=== PATIENT | female | born 1995 | race American Indian/Alaskan Native ===

== ENCOUNTER 2021-05-16 14:18 | Emergency (ER) | payer BC ==
[2021-05-16] MEDS ORDERED: SODIUM CHLORIDE 0.9% 1000 ML 1,000 ML IV ONE ×2 (15:15)
[2021-05-16] MEDS ORDERED: fentaNYL 100 MCG/2 ML INJ IV ONE (15:15)
[2021-05-16] MEDS ORDERED: ONDANSETRON 4 MG/2 ML INJ IV ONE (15:15)
--- NOTE | 2021-05-16 15:25 | Emergency Department Report ---
HPI - General Chief Complaint: Nausea/Vomiting/Diarrhea Time Seen by Provider: 05/16/21 15:05 - HPI HPI: Room 25 The patient is a 25-year-old female present with a chief complaint of nausea and vomiting. The patient states she had a strep positive this yesterday which she ate without event. The patient states she decided to eat some more today and a pproximate 30 minutes later developed intractable nausea vomiting with diffuse abdominal pain. Patient denies dysuria or vaginal discharge. ED Past Medical Hx - Past Medical History Previous Medical History?: No Hx Asthma: Yes - Surgical History Additional Surgical History: Hernia repair - Family History Family history: no significant - Social History Smoking Status: Never Smoker Substance Use Type: None, Marijuana - Medications Home Medications: Home Medications Medication Instructions Recorded Confirmed Last Taken Type Ciprofloxacin HCl 500 mg PO BID #14 tablet 05/16/21 Unknown Rx Promethazine [Phenergan] 25 mg PO Q6HR PRN #20 tab 05/16/21 Unknown Rx Promethazine [Phenergan] 25 mg DE Q6HR PRN #5 supp.rect 05/16/21 Unknown Rx ED Review of Systems ROS: Stated complaint: VOMITING Other details as noted in HPI Constitutional: no symptoms reported Eyes: denies: eye pain ENT: denies: throat pain Respiratory: no symptoms reported Cardiovascular: denies: chest pain Endocrine: no symptoms reported Gastrointestinal: abdominal pain, nausea, vomiting. denies: diarrhea Genitourinary: denies: dysuria, discharge Musculoskeletal: denies: back pain Neurological: denies: headache Physical Exam - Physical Exam Vital Signs: Vital Signs 05/16/21 14:44 Temperature 98.2 F Pulse Rate 63 Respiratory 16 Rate Blood Pressure 90/52 O2 Sat by Pulse 98 Oximetry Vital Signs 05/16/21 05/16/21 05/16/21 14:44 15:04 15:30 Temperature 98.2 F Pulse Rate 63 70 74 Respiratory 16 16 17 Rate Blood Pressure 90/52 Blood Pressure [Left] O2 Sat by Pulse 98 99 100 Oximetry 05/16/21 05/16/21 05/16/21 16:37 17:00 17:36 Temperature Pulse Rate 77 81 Respiratory 24 16 Rate Blood Pressure Blood Pressure 122/78 [Left] O2 Sat by Pulse 93 100 99 Oximetry Physical Exam: GENERAL: The patient is well-developed well-nourished female lying on stretcher appearing to be in mild discomfort. [] HEENT: Normocephalic. Atraumatic. Extraocular motions are intact. Patient has moist mucous membranes. NECK: Supple. Trachea midline CHEST/LUNGS: Clear to auscultation. There is no respiratory distress noted. HEART/CARDIOVASCULAR: Regular. There is no tachycardia. There is no gallop rub or murmur. ABDOMEN: Abdomen is soft, tender in all quadrants except the right upper quadrant. There is no rebound or guarding. Patient has normal bowel sounds. There is no abdominal distention. SKIN: There is no rash. There is no edema. There is no diaphoresis. NEURO: The patient is awake, alert, and oriented. The patient is cooperative. The patient has no focal neurologic deficits. The patient has normal speech MUSCULOSKELETAL: There is no evidence of acute injury. ED Course Vital Signs 05/16/21 14:44 Temperature 98.2 F Pulse Rate 63 Respiratory 16 Rate Blood Pressure 90/52 O2 Sat by Pulse 98 Oximetry - Reevaluation(s) Reevaluation #1: 05/16/21 17:10 Patient states she feels improved. P.o. challenge given 05/16/21 17:42 Patient tolerated p.o. ED Medical Decision Making - Lab Data Result diagrams: 05/16/21 15:14 05/16/21 15:14 Laboratory Tests 05/16/21 05/16/21 05/16/21 15:14 15:14 15:14 WBC 13.4 H RBC 4.45 Hgb 11.5 Hct 34.2 MCV 77 L MCH 26 L MCHC 34 RDW 17.1 H Plt Count 286 Add Manual Diff Complete Total Counted 100 Seg Neuts % (Manual) 81.0 H Lymphocytes % (Manual) 11.0 L Monocytes % (Manual) 5.0 Eosinophils % (Manual) 2.0 Basophils % (Manual) 1.0 Nucleated RBC % Not Reportable Seg Neutrophils # Man 10.9 H Band Neutrophils # 0.0 Lymphocytes # (Manual) 1.5 Abs React Lymphs (Man) 0.0 Monocytes # (Manual) 0.7 Eosinophils # (Manual) 0.3 Basophils # (Manual) 0.1 Metamyelocytes # 0.0 Myelocytes # 0.0 Promyelocytes # 0.0 Blast Cells # 0.0 WBC Morphology Not Reportable Hypersegmented Neuts Not Reportable Hyposegmented Neuts Not Reportable Hypogranular Neuts Not Reportable Smudge Cells Not Reportable Toxic Granulation Not Reportable Toxic Vacuolation Not Reportable Dohle Bodies Not Reportable Pelger-Huet Anomaly Not Reportable Cheryl Rods Not Reportable Platelet Estimate Not Reportable Clumped Platelets Not Reportable Plt Clumps, EDTA Not Reportable Large Platelets Not Reportable Giant Platelets Not Reportable Platelet Satelliting Not Reportable Plt Morphology Comment Not Reportable RBC Morphology Not Reportable Dimorphic RBCs Not Reportable Polychromasia Not Reportable Hypochromasia 1+ Poikilocytosis Not Reportable Anisocytosis Few Microcytosis Not Reportable Macrocytosis Not Reportable Spherocytes Not Reportable Pappenheimer Bodies Not Reportable Sickle Cells Not Reportable Target Cells Not Reportable Tear Drop Cells Not Reportable Ovalocytes Not Reportable Helmet Cells Not Reportable Zuleta-Rouse Bodies Not Reportable Gilson Rings Not Reportable Laie Cells Not Reportable Bite Cells Not Reportable Crenated Cell Not Reportable Elliptocytes Not Reportable Acanthocytes (Spur) Not Reportable Rouleaux Not Reportable Hemoglobin C Crystals Not Reportable Schistocytes Not Reportable Malaria parasites Not Reportable Gilbert Bodies Not Reportable Hem Pathologist Commnt No Sodium 137 Potassium 3.6 Chloride 101.1 Carbon Dioxide 27 Anion Gap 13 BUN 10 Creatinine 0.5 L Estimated GFR > 60 BUN/Creatinine Ratio 20 Glucose 134 H Calcium 9.0 Total Bilirubin 0.20 AST 12 ALT 11 Alkaline Phosphatase 80 Total Protein 6.6 Albumin 3.9 Albumin/Globulin Ratio 1.4 Lipase HCG, Qual Negative Urine Color Urine Turbidity Urine pH Ur Specific [place] Urine Protein Urine Glucose (UA) Urine Ketones Urine Blood Urine Nitrite Urine Bilirubin Urine Urobilinogen Ur Leukocyte Esterase Urine WBC (Auto) Urine RBC (Auto) U Epithel Cells (Auto) Urine Bacteria (Auto) Urine Mucus Urine Yeast (Budding) 05/16/21 05/16/21 15:21 Unknown WBC RBC Hgb Hct MCV MCH MCHC RDW Plt Count Add Manual Diff Total Counted Seg Neuts % (Manual) Lymphocytes % (Manual) Monocytes % (Manual) Eosinophils % (Manual) Basophils % (Manual) Nucleated RBC % Seg Neutrophils # Man Band Neutrophils # Lymphocytes # (Manual) Abs React Lymphs (Man) Monocytes # (Manual) Eosinophils # (Manual) Basophils # (Manual) Metamyelocytes # Myelocytes # Promyelocytes # Blast Cells # WBC Morphology Hypersegmented Neuts Hyposegmented Neuts Hypogranular Neuts Smudge Cells Toxic Granulation Toxic Vacuolation Dohle Bodies Pelger-Huet Anomaly Cheryl Rods Platelet Estimate Clumped Platelets Plt Clumps, EDTA Large Platelets Giant Platelets Platelet Satelliting Plt Morphology Comment RBC Morphology Dimorphic RBCs Polychromasia Hypochromasia Poikilocytosis Anisocytosis Microcytosis Macrocytosis Spherocytes Pappenheimer Bodies Sickle Cells Target Cells Tear Drop Cells Ovalocytes Helmet Cells Zuleta-Rouse Bodies Gilson Rings Diomedes Cells Bite Cells Crenated Cell Elliptocytes Acanthocytes (Spur) Rouleaux Hemoglobin C Crystals Schistocytes Malaria parasites Gilbert Bodies Hem Pathologist Commnt Sodium Potassium Chloride Carbon Dioxide Anion Gap BUN Creatinine Estimated GFR BUN/Creatinine Ratio Glucose Calcium Total Bilirubin AST ALT Alkaline Phosphatase Total Protein Albumin Albumin/Globulin Ratio Lipase 19 HCG, Qual Urine Color Yellow Urine Turbidity Slightly-cloudy Urine pH 7.0 Ur Specific [place] 1.013 Urine Protein 30 mg/dl Urine Glucose (UA) Neg Urine Ketones Neg Urine Blood Lg Urine Nitrite Neg Urine Bilirubin Neg Urine Urobilinogen < 2.0 Ur Leukocyte Esterase Sm Urine WBC (Auto) 22.0 H Urine RBC (Auto) > 182.0 U Epithel Cells (Auto) 3.0 Urine Bacteria (Auto) 1+ Urine Mucus Few Urine Yeast (Budding) 1+ - Radiology Data Radiology results: report reviewed (CT abdomen pelvis), image reviewed (CT abdomen pelvis) [facility] [address] [place] [address] Cat Scan Report Signed Patient: JOSELO KAUFFMAN MR#: [id number] [birth year] : 1995 Acct:[id number] Age/Sex: 25 / F ADM Date: 05/16/21 Loc: ED Attending Dr: Ordering Physician: RADHA SHOEMAKER MD Date of Service: 05/16/21 Procedure(s): CT abdomen pelvis w con Accession Number(s): [id number] cc: RADHA SHOEMAKER MD CT ABDOMEN AND PELVIS WITH CONTRAST HISTORY: Diffuse abdominal pain, nausea, vomiting COMPARISON: None TECHNIQUE: Routine abdominal and pelvic CT exam performed following intravenous contrast administration.. All CT scans at this location are performed using CT dose reduction for ALARA by means of automated exposure control. FINDINGS: CT ABDOMEN: Lung Bases: No significant abnormality. Liver: No significant abnormality. Biliary: No significant abnormality. Spleen: No significant abnormality. Unenlarged. Pancreas: No significant abnormality. Adrenals: No significant abnormality. Kidneys: No significant abnormality. Lymphatics: No lymphadenopathy. Vasculature: No significant abnormality. Bowel/Peritoneum: No significant abnormality. No free air. No free fluid. Normal appendix. CT PELVIC: : No acute findings. Small amount free fluid noted. Lymphatics: No lymphadenopathy. Osseous Structures: No aggressive appearing osseous lesions. Additional Findings: None IMPRESSION: 1. No acute findings. Small amount free fluid in the pelvis is likely physiologic. Signer Name: Abhishek Mccrakcen MD Signed: 05/16/2021 4:46 PM Workstation Name: [id number] Transcribed By: YUSRA Dictated By: Abhishek Mccracken MD Electronically Authenticated By: Abhishek Mccracken MD Signed Date/Time: 05/16/211645 DD/ 44 TD/TT: Print Cancel - Differential Diagnosis Gastroenteritis Critical care attestation.: If time is entered above; I have spent that time in minutes in the direct care of this critically ill patient, excluding procedure time. ED Disposition Clinical Impression: Gastritis, UTI (urinary tract infection), Acute abdominal pain Disposition: - TO HOME OR SELFCARE Is pt being admited?: No Does the pt Need Aspirin: No Condition: Stable Instructions: Gastritis, Adult, [id number], Urinary Tract Infection, Adult Additional Instructions: Return to the emergency department should you develop worsening symptoms, inability to tolerate food or liquids, high fever or any other concerns Prescriptions: Ciprofloxacin HCl 500 mg PO BID #14 tablet Promethazine [Phenergan] 25 mg PO Q6HR PRN #20 tab PRN Reason: Nausea Promethazine [Phenergan] 25 mg DE Q6HR PRN #5 supp.rect PRN Reason: Vomiting Referrals: GENIA TERRAZAS MD [Staff Physician] - 3-5 Days (Dr. Terrazas is a manager generation. Please follow-up with him for further evaluation) Time of Disposition: 17:42
[2021-05-16 15:43] LABS: Alanine Aminotransferase 11 units/L (7-56); Albumin 3.9 g/dL (3.9-5); BUN/Creatinine Ratio 20; Blood Urea Nitrogen 10 mg/dL (7-17); Hemolysis Index 4
[2021-05-16 15:46] LABS: Hematocrit 34.2 % (30.3-42.9); Hemoglobin 11.5 gm/dl (10.1-14.3); Mean Corpuscular HGB Conc 34 % (30-34); Mean Corpuscular Volume 77 fl (79-97); Platelet Count 286 K/mm3 (140-440); Red Blood Count 4.45 M/mm3 (3.65-5.03); Red Cell Distribution Width 17.1 % (13.2-15.2)
[2021-05-16 16:38] LABS: Bacteria,Urine 1+ /HPF (Negative); Bilirubin,Urine NEG (Negative); Blood,Urine LG (Negative); Color,Urine Yellow (Yellow); Mucus,Urine FEW /HPF; Urobilinogen,Urine < 2.0 mg/dL (<2.0)
[2021-05-16 16:39] LABS: RBC,Urine > 182.0 /HPF (0.0-6.0)
[2021-05-16 16:50] LABS: Anisocytosis Few; Hypochromasia 1+; Total Cells Counted 100
--- NOTE | 2021-05-16 16:50 | Cat Scan Report ---
CT ABDOMEN AND PELVIS WITH CONTRAST HISTORY: Diffuse abdominal pain, nausea, vomiting COMPARISON: None TECHNIQUE: Routine abdominal and pelvic CT exam performed following intravenous contrast administrat ion.. All CT scans at this location are performed using CT dose reduction for ALARA by means of autom ated exposure control. FINDINGS: CT ABDOMEN: Lung Bases: No significant abnormality. Liver: No significant abnormality. Biliary: No significant abnormality. Spleen: No significant abnormality. Unenlarged. Pancreas: No significant abnormality. Adrenals: No significant abnormality. Kidneys: No significant abnormality. Lymphatics: No lymphadenopathy. Vasculature: No significant abnormality. Bowel/Peritoneum: No significant abnormality. No free air. No free fluid. Normal appendix. CT PELVIC: : No acute findings. Small amount free fluid noted. Lymphatics: No lymphadenopathy. Osseous Structures: No aggressive appearing osseous lesions. Additional Findings: None IMPRESSION: 1. No acute findings. Small amount free fluid in the pelvis is likely physiologic. Signer Name: Abhishek Mccracken MD Signed: 05/16/2021 4:46 PM Workstation Name: [id number]
[2021-05-16 17:37] VITALS: BP 122/78
== END 2021-05-16 17:40 | disposition home or self-care (01) ==
LOC: ED 14:18
DX: N39.0 Urinary tract infection, site not specified (principal); K29.70 Gastritis, unspecified, without bleeding; R10.84 Generalized abdominal pain; J45.909 Unspecified asthma, uncomplicated; Z98.890 Other specified postprocedural states; F12.10 Cannabis abuse, uncomplicated; Z79.1 Long term (current) use of non-steroidal anti-inflammatories (NSAID); Z79.899 Other long term (current) drug therapy; Z88.8 Allergy status to other drugs, medicaments and biological substances
CPT/HCPCS: 36415; 74177; 80053; 81001; 83690; 84703; 85007; 85025; 87086; 96361; 96374; 96375; 99284; J2405; J3010; J7030; Q9967

== ENCOUNTER 2022-04-13 21:08 | Emergency (ER) | payer OTHER, BC ==
[2022-04-13] MEDS ORDERED: ACETAMINOPHEN 500 MG TAB PO ONE (22:03)
[2022-04-13 22:04] VITALS: BP 105/59
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
[2022-04-13 23:20] LABS: Bilirubin,Urine NEG (Negative); Blood,Urine NEG (Negative); Color,Urine Yellow (Yellow); Protein,Urine <15 mg/dL mg/dL (Negative); Urobilinogen,Urine < 2.0 mg/dL (<2.0)
[2022-04-13 23:23] LABS: Mucus,Urine FEW /HPF
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
== END 2022-04-14 00:29 | disposition home or self-care (01) ==
LOC: ED 21:08
DX: O9A.212 Injury, poisoning and certain other consequences of external causes complicating pregnancy, second trimester (principal); S30.811A Abrasion of abdominal wall, initial encounter; J45.909 Unspecified asthma, uncomplicated; Z98.890 Other specified postprocedural states; Z79.899 Other long term (current) drug therapy; Z88.5 Allergy status to narcotic agent; Z3A.19 19 weeks gestation of pregnancy; V87.7XXA Person injured in collision between other specified motor vehicles (traffic), initial encounter; Y93.89 Activity, other specified; Y92.488 Other paved roadways as the place of occurrence of the external cause; Y99.8 Other external cause status
CPT/HCPCS: 36415; 76805; 81001; 84702; 99284